=== PATIENT | male | born 1965 | race Caucasian/White ===

== ENCOUNTER 2017-02-16 11:12 | Observation (INO) ==
[2017-02-16] MEDS ORDERED: *HR* Promethazine 25 MG/ML VIAL IVP PRN ×3 (11:25→19:06)
[2017-02-16] MEDS ORDERED: Ondansetron 4 MG/2 ML VIAL IVP PRN ×2 (11:25→19:06)
[2017-02-16] MEDS ORDERED: Naloxone 0.4 MG/ML INJ IVP PRN ×2 (11:25→19:06)
[2017-02-16] MEDS ORDERED: 0.9 % Sodium Chloride 1,000 ML IVC SCH ×2 (11:30→19:06)
[2017-02-16] MEDS ORDERED: Levofloxacin 500 MG/100 ML 500 MG/100 ML BAG IVPB SCH (12:00)
--- NOTE | 2017-02-16 12:53 | Urology History & Physical ---
Date of Encounter: 02/16/17 Time of Encounter: 12:51 Assessment and Plan (1) Ureterolithiasis Current Visit: No Status: Acute 51-year-old man with a mid left ureteral stone and after a ureteroscopic stone extraction. This is a small stone fragment which didn't pass. He has been admitted for pain control. He wishes to have the stone fragment removed. We will schedule him for a left ureteroscopy, laser lithotripsy, and stent placement.He was informed of the risks of the procedure including but not limited to bleeding, infection, injury to other structures, need for further procedures, stent irritation, incomplete fragmentation, ureteral perforation, need for nephrostomy tube, need for open repair, risks unforeseen, and the risk of anesthesia. He is willing to proceed. History of Present Illness Chief complaint: Left flank pain HPI: Mr. Sanchez is a 51 year old male who has a history of left flank pain. He has a history of nephrolithiasis. He had a left ureteroscopic stone extraction with laser lithotripsy on February 12, 2017. He removed his stent 3 days later. He then developed severe left flank pain. He came to the emergency department. There was a small stone fragment in the left mid ureter as well as some debris at the left ureterovesicle junction. He was given some pain medication and follow-up in the office today. His pain was adequately controlled and he was admitted to the hospital for pain control. He is having some nausea. Past Med Surg Social Fam HX - Past Medical History Medical history: hypertension, kidney stones Psychiatric history: no psych history - Past Surgical History Surgical History: no surgical history - Social History Smoking Status: Never smoker Smokeless Tobacco Status: No Alcohol use: occasionally Drug use: none - Family History Father Living Status: Still Living Hx Family Cardiac Disorders: Yes Mother Hx Family Cardiac Disorders: Yes Medications and Allergies Tamsulosin [Flomax] 0.4 mg PO DAILY PRN #7 cap.er.24h 12/25/16 [Rx] Losartan/Hydrochlorothiazide [Hyzaar 100-25 Tablet] 1 tab PO DAILY 01/23/17 [ History] Docusate [Colace] 100 mg PO BID #60 capsule 02/12/17 [Rx] Oxycodone HCl/Acetaminophen [Percocet 5-325 mg Tablet] 1 each PO Q6H PRN #20 tablet 02/12/17 [Rx] Phenazopyridine HCl [Pyridium] 200 mg PO TIDAC #12 tab 02/12/17 [Rx] Ciprofloxacin [Cipro] 500 mg PO BID #14 tablet 02/15/17 [Rx] 3 Allergy/AdvReac Type Severity Reaction Status Date / Time No Known Allergies Allergy Verified 02/15/17 21:07 Review of Systems - Constitutional chills, no fever(s) - EENT Nose, mouth and throat: no dizziness - Cardiovascular no chest pain - Respiratory no dyspnea - Gastrointestinal nausea, no vomiting - Genitourinary flank pain, no hematuria - Musculoskeletal no back pain - Integumentary no erythema, no rash - Neurological no weakness - Psychiatric no suicidal ideation - Hematologic/Lymphatic no easy bleeding - Allergic/Immunologic no wheezing Exam Initial Vital Signs Temp Pulse Resp BP Pulse Ox 97.7 F 81 18 137/80 94 02/16/17 12:21 02/16/17 12:21 02/16/17 12:21 02/16/17 12:21 02/16/17 12:21 - General physical appearance Present: well developed, well nourished, no distress - Eyes Absent: icteric - ENT Present: normal mucosa - Neck Present: no masses - Respiratory Present: normal respiratory effort - Cardiovascular Cardiovascular exam IM: RRR - Abdomen Abdomen: Present: soft Urology Results - Labs All other labs normal. - Imaging CT scan - abdomen: report reviewed, image reviewed CT scan - pelvis: report reviewed, image reviewed
[2017-02-16] MEDS: *HR* HYDROmorphone (PF) 1 MG/ML SYRINGE IVP PRN ×2 (12:54→14:17)
--- NOTE | 2017-02-16 15:36 | Anesthesia Evaluation PreOp ---
Date of Encounter: 02/16/17 Time of Encounter: 15:33 - Past History Planned Operation: left USE Cardiac History: HTN Pulmonary History: Denies Any Significant HX LITERACY SPECIALIST History: Denies Any Significant HX Other Medical History: Other (obesity) Anesthesia History: No Prior Anesthetic Complications, Past Anesthesia (left USE with stent) Alcohol Use: occasionally Drug use: none Medications and Allergies Tamsulosin [Flomax] 0.4 mg PO DAILY PRN #7 cap.er.24h 12/25/16 [Rx] Losartan/Hydrochlorothiazide [Hyzaar 100-25 Tablet] 1 tab PO DAILY 01/23/17 [ History] OxyCODONE/APAP 10/325 [Percocet 10/325 MG] 1 tab PO TID PRN 02/16/17 [History] Oxymorphone HCl [Oxymorphone HCl ER] 20 mg PO Q12H PRN 02/16/17 [History] 3 Allergy/AdvReac Type Severity Reaction Status Date / Time No Known Allergies Allergy Verified 02/16/17 13:33 - Meds/Allergy Pre-op Review Medications Reviewed: Yes Allergies Reviewed: Yes Beta Blockers on Current Med List: No Anesthesia Exam Selected Entries 02/16/17 12:21 Temperature 97.7 F Pulse Rate 81 Respiratory Rate 18 Blood Pressure 137/80 O2 Sat by Pulse Oximetry 94 Weight: 150kg BMI 41 NPO (# of Hours): 8 - HEENT Pupil (Motor): EOMI Mallampati: II Teeth: Normal Oral Opening: Greater than 3 - LITERACY SPECIALIST LITERACY SPECIALIST Motor: Normal RUE, Normal LUE, Normal RLE, Normal LLE, Normal Face LITERACY SPECIALIST Sensory: Normal: RUE, LUE, RLE, LLE, Face - Cardiac Rhythm: Regular Murmur: None - Pulmonary Breath Sounds: bilateral Clear Respiratory Effort: Symmetrical Anesthesia Assess/Plan ASA Score: 2 Modified [place] Scale for Level of Consciousness: Cooperative, oriented, and tranquil Anesthetic Plan: General Monitoring Plan: Standard Monitors Recovery Plan: PACU (discussed GA, agrees to proceed)
[2017-02-16] MEDS ORDERED: *HR* Rocuronium Bromide 50 MG/5 ML VIAL ONE (15:59)
[2017-02-16] MEDS ORDERED: *HR* Propofol 200 MG/20 ML VIAL IVP ONE (15:59)
[2017-02-16] MEDS ORDERED: Lidocaine -MPF 2% 2 ML VIAL ONE (15:59)
[2017-02-16] MEDS ORDERED: Lidocaine -MPF 4% 5 ML AMPUL ONE (15:59)
[2017-02-16] MEDS ORDERED: Dexamethasone 4 MG/ML VIAL ONE (15:59)
[2017-02-16] MEDS ORDERED: Ondansetron 4 MG/2 ML VIAL ONE (15:59)
[2017-02-16] MEDS ORDERED: *HR* FentaNYL (PF) 100 MCG/2 ML VIAL ONE (15:59)
[2017-02-16] MEDS ORDERED: Acetaminophen IV 1,000 MG/100 ML INFUS..BTL ONE (16:05)
[2017-02-16] MEDS ORDERED: Metoclopramide 10 MG/2 ML VIAL ONE (16:05)
[2017-02-16] MEDS ORDERED: Famotidine 20 MG/2 ML VIAL ONE (16:05)
[2017-02-16] MEDS ORDERED: EPHEDrine 50 MG/ML VIAL ONE (16:46)
[2017-02-16] MEDS ORDERED: *HR* Succinylcholine 200 MG/10 ML VIAL IVP ONE (16:46)
[2017-02-16] MEDS ORDERED: *HR* Labetalol 20 MG/4 ML SYRINGE IVP PRN (16:48)
[2017-02-16] MEDS ORDERED: *HR* HYDROmorphone (PF) 1 MG/ML SYRINGE IVP PRN ×2 (16:48→19:06)
[2017-02-16] MEDS ORDERED: Ondansetron 4 MG/2 ML VIAL IVP ONE (16:48)
[2017-02-16] MEDS ORDERED: *HR* Meperidine 25 MG/ML SYRINGE IVP PRN (16:48)
--- NOTE | 2017-02-16 17:14 | Operative Note ---
Date of procedure: 02/16/17 Pre-op diagnosis: Left ureteral stone Post-op diagnosis: same Procedure: Left ureteroscopy, basket stone extraction, and left ureteral stent placement. Implants: 6 American by 28 cm double-J stent. Complications: None. Anesthesia: DARIEL Surgeon: Michael Dan Estimated blood loss (cc): 1 Specimen: Left ureteral stone Condition: stable Disposition: PACU Procedure in Detail: Indications: Mr. Sanchez is a 51-year-old gentleman who has a history of left flank pain. Last week he underwent a left ureteroscopy, laser lithotripsy, and stent placement. He removed his stent 3 days later. He developed immediate left flank pain. He came to the emergency department and a CT scan showed a mid ureteral stone fragment. He was seen in the office today and was admitted for pain control. He elected to undergo a left ureteroscopy, laser lithotripsy, and stent placement. He is aware of the risks of the procedure including but not limited to bleeding, infection, injury to other structures, need for further procedures, stent irritation, and the risk of anesthesia. He is willing to proceed. Procedure: After informed consent was obtained the patient was brought back to the operating room and placed in supine position. A time out was performed. General anesthesia was administered and an endotracheal tube was placed. He was then placed in the lithotomy position. He was prepped and draped in the usual sterile fashion. Cystoscopy was performed. The anterior urethra was normal. There was no evidence of bladder tumors. The ureteral orifices were in the normal orthotopic position. The Zip wire was placed in the left ureteral orifice and brought into the kidney under fluoroscopic guidance. I then advanced the semirigid ureteroscope into the ureter. There was minimal stone debris in the distal ureter which was basket extracted. The scope was advanced into the mid ureter and there were some larger stone fragments which were obstructed and a narrowed section of the ureter. The stone fragments were basket extracted. Once I was able to extract all of the ureteral stones I placed a sensor wire. The scope was removed. The flexible ureteroscope was advanced over the sensor wire and brought into the kidney under fluoroscopic guidance. All the calyces were surveyed with the flexible ureteroscope. There was some old blood clot, but no residual stone. The scope was removed and the only residual stone noted within the ureter was a small sub 1mm fragment.the stone seemed to be a size which could pass easily. A 6 American by 28cm JJ stent was then placed with good curl seen in the kidney and the bladder. The dangle string was left intact. It was secured to the penis using a Tegaderm. The patient was then awakened from general anesthesia and brought to recovery room in good condition. All sponge, needle, and instrument counts were correct.
--- NOTE | 2017-02-16 17:19 | Discharge Summary ---
Date of Encounter: 02/16/17 Time of Encounter: 17:17 - Discharge Diagnosis (1) Ureterolithiasis Priority: Primary Status: Acute - Discharge Medications Prescriptions: Oxycodone HCl/Acetaminophen [Percocet 5-325 mg Tablet] 1 each PO Q6H PRN #15 tablet PRN Reason: Pain Home Medications: Tamsulosin [Flomax] 0.4 mg PO DAILY PRN #7 cap.er.24h 12/25/16 [Rx] Losartan/Hydrochlorothiazide [Hyzaar 100-25 Tablet] 1 tab PO DAILY 01/23/17 [ History] OxyCODONE/APAP 10/325 [Percocet 10/325 MG] 1 tab PO TID PRN 02/16/17 [History] Oxycodone HCl/Acetaminophen [Percocet 5-325 mg Tablet] 1 each PO Q6H PRN #15 tablet 02/16/17 [Rx] Oxymorphone HCl [Oxymorphone HCl ER] 20 mg PO Q12H PRN 02/16/17 [History] Allergies/Adverse Reactions: 3 Allergy/AdvReac Type Severity Reaction Status Date / Time No Known Allergies Allergy Verified 02/16/17 13:33 Date of admission: 02/16/17 11:26 Primary care physician: PCP NONE Discharging clinician: Michael Dan Anticipated date of discharge: 02/16/17 - Patient Status Disposition: Home, Self-Care Condition: Good Functional capacity at discharge: independent ambulation Overall status at discharge: patient is progressing back to baseline - Discharge Instructions Follow Up With: Michael Dan MD [Partnered Physician] - (2-4 weeks.) Additional Instructions: 1. The patient can remove his stent in 5 days by pulling on the string. 2. He should expect to feel flank pain with voiding. 3. The patient should call for any fevers, chills, nausea, emesis, or uncontrolled pain. 4. Please provide a work excuse if necessary for up to 1 week off. 5. He can follow up with me in 2-4 weeks. - Diet and Activity Activity: increase activity as tolerated Diet: advance to your usual diet - Hospital Course Hospital course: Mr. Sanchez is a 51 year old male with a history of a left ureteral stent. Last week he underwent a left ureteroscopy, laser lithotripsy, stent placement. He removed his stent and unfortunately there was a residual stone fragment which was stuck in the left ureter. He developed severe left flank pain and was admitted for pain control. He underwent a left ureteroscopic stone extraction on February 16, 2017. He did well after surgery and was discharged home later that night. - Time Spent with Patient Total time spent providing and/or coordinating discharge services: Less than 30 minutes Exam Initial Vital Signs Temp Pulse Resp BP Pulse Ox 97.7 F 81 18 137/80 94 02/16/17 12:21 02/16/17 12:21 02/16/17 12:21 02/16/17 12:21 02/16/17 12:21 - General physical appearance Present: well developed, well nourished, no distress - Eyes Absent: icteric - ENT Present: normal nares - Neck Present: trachea midline - Respiratory Present: normal respiratory effort - Cardiovascular Cardiovascular exam IM: RRR - Abdomen Abdomen: Present: soft
[2017-02-16] MEDS ORDERED: Ringers Solution, Lactated 1,000 ML ONE (17:22)
--- NOTE | 2017-02-16 17:39 | Anesthesia Evaluation Post Op ---
Date of Encounter: 02/16/17 Time of Encounter: 17:37 - Vital Signs Vital Signs: Vital Signs/O2 Sat, Most Current Temp Pulse Resp BP Pulse Ox 100.1 F H 81 12 126/72 95 02/16/17 17:14 02/16/17 17:34 02/16/17 17:34 02/16/17 17:34 02/16/17 17:34 - Lungs Lungs: Clear Ascult./Percussion - Airway Airway: Non-obstructed - Cardiovascular Regular Rate - Mental Status Mental Status: Alert & Oriented, Answers Appropriately - Pain Pain Scale: 0 (denies) Pain Scale used: Numeric (1 - 10) - Nausea Vomiting Nausea Vomiting: Not Present - Hydration Hydration: Ice chips, Has not voided - Discharge PostOp Status: Transfer Patient to floor
[2017-02-16 17:45] VITALS: BP 133/73
[2017-02-16] MEDS ORDERED: *HR* OxyCODONE/APAP 5/325 TABLET PO PRN (19:06)
== END 2017-02-16 19:30 | disposition home or self-care (01) ==
LOC: 3BNU
PROVIDERS: ADMIT Urology; ATTEND Urology